=== PATIENT | male | born 1980 | race Caucasian/White ===

== ENCOUNTER 2020-12-31 10:17 | Emergency (ER) | payer OTHER ==
[~2020-12-31] VITALS: Ht 190.5 cm; Wt 99.8 kg
[2020-12-31] MEDS ORDERED: TDAP DIPH,PERTUSS,TET VAC/PF 0.5 ML DISP.SYRIN IM ONE (11:15)
[2020-12-31] MEDS ORDERED: LIDOCAINE HCL 2% 20 ML VIAL TP ONE (11:15)
--- NOTE | 2020-12-31 11:16 | NUR ---
Patient discharged to home in stable condition. Written and verbal after care instructions given to patient. Patient verbalized understanding & compliance of instructions. Stressed follow up with primary doctor and workman's compensation medical provider or return to ER for worsening s/s.
== END 2020-12-31 11:17 | disposition home or self-care (01) ==
LOC: ER 10:19
DX: M79.642 Pain in left hand (principal); S61.012A Laceration without foreign body of left thumb without damage to nail, initial encounter; W26.0XXA Contact with knife, initial encounter; Y92.89 Other specified places as the place of occurrence of the external cause; Y99.0 Civilian activity done for income or pay
CPT/HCPCS: A4663

== ENCOUNTER 2021-01-02 09:28 | Emergency (ER) | payer OTHER ==
[~2021-01-02] VITALS: Ht 190.5 cm; Wt 97.5 kg
--- NOTE | 2021-01-02 09:36 | NUR ---
Dr Batool Meyer at bedside for MSE.
[2021-01-02] MEDS ORDERED: NEOMY/BACITRA/POLYMYXIN B OINT UD PACKET TP ONE (09:46)
--- NOTE | 2021-01-02 09:48 | NUR ---
Patient discharged to home in stable condition. Written and verbal after care instructions given. Patient verbalizes understanding of instructions. Stressed follow up or return to ER for worsening s/s.
== END 2021-01-02 09:49 | disposition home or self-care (01) ==
LOC: ER 09:29
DX: S61.412D Laceration without foreign body of left hand, subsequent encounter (principal); W26.0XXD Contact with knife, subsequent encounter
CPT/HCPCS: A4663

== ENCOUNTER 2021-01-09 05:33 | Emergency (ER) | payer OTHER ==
[~2021-01-09] VITALS: Ht 190.5 cm; Wt 99.8 kg
--- NOTE | 2021-01-09 05:50 | NUR ---
Patient presents for suture removal of a Left Hand laceration that he obtained 9 days ago. No signs of infection. Feeling + warmth + movement in distal part of affected extremity.
--- NOTE | 2021-01-09 05:55 | NUR ---
Dr. Meyer at bedside to remove sutures
[2021-01-09 06:01] VITALS: BP 122/61
--- NOTE | 2021-01-09 06:01 | NUR ---
Patient discharged to home in stable condition. Written and verbal after care instructions given. Patient verbalizes understanding of instructions. Stressed follow up or return to ER for worsening s/s. VSS. Steady gait. All belongings with patient.
--- NOTE | 2021-01-09 06:02 | NUR ---
Tetanus vaccine 4 years ago
== END 2021-01-09 06:07 | disposition home or self-care (01) ==
LOC: ER 05:35
DX: S61.412D Laceration without foreign body of left hand, subsequent encounter (principal); X58.XXXD Exposure to other specified factors, subsequent encounter
CPT/HCPCS: A4663